=== PATIENT | male | born 1980 | race Caucasian/White ===

== ENCOUNTER 2021-12-28 15:15 | Emergency (ER) | payer MEDICARE, MEDICAID, SELFPAY ==
[2021-12-28 15:57] VITALS: BP 138/96; PULSE 118; RESP 18; TEMP 37.3; O2SAT 95; BMI 28.4
--- NOTE | 2021-12-28 16:05 | ECG_ITS ---
Test Reason : MEDCLEARANCE Blood Pressure : / mmHG Vent. Rate : 098 BPM Atrial Rate : 098 BPM P-R Int : 144 ms QRS Dur : 072 ms QT Int : 340 ms P-R-T Axes : 058 -11 040 degrees QTc Int : 434 ms Normal sinus rhythm Normal ECG When compared with ECG of 23-JUL-2018 16:48, No significant change was found Referred By: Fay Vasquez Electronically Signed By:YVONNE ALEXANDER MD
--- NOTE | 2021-12-28 16:10 | ED.PSYCH ---
HPI - Psych General Chief Complaint: Psychiatric Symptoms <Fay Villareal CODY Vasquez - Last Filed: 12/28/21 18:07> Stated Complaint: crisis <Fay Villareal CODY Vasquez - Last Filed: 12/28/21 18:07> Time Seen by Provider: 12/28/21 16:05 <Fay Dionnaannia Vasquez CNP - Last Filed: 12/28/21 18:07> Source: patient <Fay Villareal CODY Vasquez - Last Filed: 12/28/21 18:07> Mode of arrival: ambulatory <Fay Villareal CODY Vasquez - Last Filed: 12/28/21 18:07> Limitations: no limitations <Fay Dionna CODY Vasquez - Last Filed: 12/28/21 18:07> History of Present Illness HPI Narrative: Patient is a 41 year old with a past medical history of bipolar disorder, and cannabis use. He presents emergency department today for evaluation reporting he has been having trouble sleeping for a few days. He states he is not taking his medications, for a few years as he has been self medicating with marijuana which he feels helps. denies any recreational drug usage, reports infrequent alcohol consumption last usage a few days ago. He denies any suicidal or homicidal ideations. When asked whether he feels anxious or depressed he shrugs his shoulders. He reports that he lives with his 3 brothers Twin, Chas, Jose, with whom he is comfortable with us speaking with them. <Fay Dionnaannia Vasquez CNP - Last Filed: 12/28/21 18:07> Related Data Home Medications: Previous Rx's Medication Instructions Recorded quetiapine 50 mg tablet (Seroquel) 50 mg PO BEDTIME #10 tab 12/28/21 <Faymaryann Vasquez CNP - Last Filed: 12/28/21 18:07> Allergies/Adverse Reactions: Allergies Allergy/AdvReac Type Severity Reaction Status Date / Time No Known Allergies Allergy Unverified 06/07/20 16:49 [No Known Allergies*] <Fay Vasquez CNP - Last Filed: 12/28/21 18:07> Review of Systems Review of Systems: Constitutional : No Fever, No Chills ENT/Mouth : No Ear Pain, No Nasal Congestion, No sore throat Eyes: No Eye Pain, No Swelling, No Redness Cardiovascular : No Chest Pain, No SOB Respiratory : No Cough, No Sputum, No Dyspnea Gastrointestinal : No Nausea, No Vomiting, No Diarrhea, No Hematochezia, No Melena Genitourinary : No Dysuria, No Urinary Frequency, No Hematuria Musculoskeletal : No Myalgias Skin : No Skin Lesions, No rash Neuro : No Weakness, No Numbness, No Paresthesias, No Dizziness, No Headache Psych : Denies Anxiety, denies Depression, denies SI/HI, positive sleep disturbance Heme/Lymph: No Lymphadenopathy Endocrine : No Polyuria, No Polydipsia <aFy Vasquez CNP - Last Filed: 12/28/21 18:07> Yes all other systems are reviewed and are negative <Fay Vasquez CNP - Last Filed: 12/28/21 18:07> [facility] Past Medical History Attestation statement: The following information was validated with the patient. <Fay Vasquez CNP - Last Filed: 12/28/21 18:07> Source: old records reviewed <Fay Vasquez CNP - Last Filed: 12/28/21 18:07> Social History Social History: Social History Advance Directives: No Advance Directives Information Provided: No <Fay Vasquez CNP - Last Filed: 12/28/21 18:07> Physical Exam Vital Signs: Vital Signs: Last Vital Signs Temp 99.2 F 12/28/21 15:57 Pulse 91 12/28/21 17:10 Resp 18 12/28/21 17:10 BP 138/96 H 12/28/21 15:57 Pulse Ox 95 12/28/21 15:57 BMI result Body Mass Index 28.4 Vital signs have been reviewed and appeared to be correct. Blood pressure normal.? Initial tachycardia heart rate 118. Respiration rate normal. Temperature normal.? Oxygen saturation normal. <Fay Vasquez CNP - Last Filed: 12/28/21 18:07> Vital Signs: Last Vital Signs Temp 99.2 F 12/28/21 15:57 Pulse 91 12/28/21 17:10 Resp 18 12/28/21 17:10 BP 138/96 H 12/28/21 15:57 Pulse Ox 95 12/28/21 15:57 BMI result Body Mass Index 28.4 <Varghese Tucker MD - Last Filed: 12/28/21 18:29> Appearance: Alert.?Oriented to person, place and time. No acute distress.? Patient appears withdrawn, stuttering of his words, takes time to respond to questioning, appears mildly anxious Eyes: Pupils equal, round and reactive to light.? ENT: Pharynx normal.?? Neck: Normal inspection.? Neck supple.?? CVS: Heart sounds normal. Normal heart rate and rhythm.? Pulses normal.?? Respiratory: No respiratory distress.? Lung sounds clear to auscultation bilaterally?? Abdomen: Soft and non-tender. Normoactive bowel sounds. No pulsatile mass.?? Skin: Skin warm and dry.? Normal skin color.? Normal skin turgor.?? Extremities: No lower extremity edema.? Neuro: Moves all extremities spontaneously. Sensation intact bilaterally. CN II-XII intact. No focal neuro deficits. Ambulates with normal steady gait. <Fay Vasquez CNP - Last Filed: 12/28/21 18:07> Course Course Course Narrative: Patient is a 41-year-old male with a past medical history of bipolar disorder and cannabis use disorder, requesting to be seen for difficulty sleeping over the past few nights. He has not been taking his medications for a few years. Currently with no suicidal or homicidal ideations. Will obtain basic labs, including EKG is he is mildly tachycardic. Patient to be evaluated by crisis. <Fay Vasquez CNP - Last Filed: 12/28/21 18:07> Reevaluation(s) Reevaluation #1: Heart rate improved to 91. EKG reveals normal sinus rhythm. U-tox positive for marijuana. Patient placed in position observation this time as he will require more time for evaluation by N for appropriate disposition. He is well-appearing. In no apparent respiratory distress. <Fay Vasquez CNP - Last Filed: 12/28/21 18:07> Time: 18:06 <Fay Vasquez CNP - Last Filed: 12/28/21 18:07> Reevaluation #2: Patient seen by raphael jeffersonay to discharge patient home follow up as outpatient advised to give Seroquel 50 mg daily for now for sleep <Varghese Tucker MD - Last Filed: 12/28/21 18:29> MDM - Psych Medical Records Attestation: I reviewed the patient's medical records. <Fay Vasquez CNP - Last Filed: 12/28/21 18:07> Lab Data Attestation: I reviewed the patient's lab results. <Fay Vasquez CNP - Last Filed: 12/28/21 18:07> Result diagrams: : 12/28/21 17:52 12/28/21 17:52 <Fay Vasquez CNP - Last Filed: 12/28/21 18:07> Labs: Lab Results 12/28/21 12/28/21 12/28/21 Range/Units 16:08 16:09 17:52 WBC 12.0 H (4.8-10.8) X10*3/uL RBC 4.76 (4.60-5.80) X10*6/uL Hgb 14.3 (14.0-18.0) g/dl Hct 43.6 (42.0-52.0) % MCV 91.6 (80.0-98.0) fL MCH 30.0 (27.0-33.0) pg MCHC 32.8 (31.0-36.0) g/dl RDW 13.1 (11.0-16.0) % Plt Count 381 (160-400) X10*3/uL MPV 9.1 L (9.4-12.4) fL Immature Gran % (Auto) 0.4 (0.0-0.4) % Neut % (Auto) 68.0 (45-73) % Lymph % (Auto) 22.2 (20-40) % [place] % (Auto) 8.3 (2-11) % Eos % (Auto) 0.6 (0-4) % Baso % (Auto) 0.5 (0-2) % Lymph # (Auto) 2.7 (1.2-4.9) X10*3/uL [place] # (Auto) 1.0 (0.1-1.2) X10*3/uL Eos # (Auto) 0.1 (0.0-0.4) X10*3/uL Baso # (Auto) 0.1 (0.0-0.2) X10*3/uL Abs Immat Gran (auto) 0.05 H (0.00-0.03) X10*3/uL Absolute Neuts (auto) 8.2 (2.0-8.3) x10*3/uL Absolute Nucleated RBC 0.000 (0.0-0.012) X10*3/uL Nucleated RBC % (auto) 0.0 (0.0-0.2) /100WBC Sodium (135-145) mmol/L Potassium (3.3-5.1) mmol/L Chloride (96-108) mmol/L Carbon Dioxide (22-29) mmol/L Anion Gap (12-20) BUN (9-16) mg/dL Creatinine (0.5-1.4) mg/dL Estim Creat Clear Calc Estimated GFR Random Glucose (60-115) mg/dL Calcium (8.4-10.2) mg/dL Urine Opiates Screen Not Detected (Not Detect) Urine Fentanyl Screen Not Detected (Not Detect) Ur Barbiturates Screen Not Detected (Not Detect) Ur Phencyclidine Scrn Not Detected (Not Detect) Ur Amphetamines Screen Not Detected (Not Detect) U Benzodiazepines Scrn Not Detected (Not Detect) Urine Cocaine Screen Not Detected (Not Detect) U Marijuana (THC) Screen POSITIVE H (Not Detect) Ethyl Alcohol mg/dL COVID-19 (ZAFAR) Negative (Negative) COVID-19 Clin Com See Note 12/28/21 12/28/21 Range/Units 17:52 17:52 WBC (4.8-10.8) X10*3/uL RBC (4.60-5.80) X10*6/uL Hgb (14.0-18.0) g/dl Hct (42.0-52.0) % MCV (80.0-98.0) fL MCH (27.0-33.0) pg MCHC (31.0-36.0) g/dl RDW (11.0-16.0) % Plt Count (160-400) X10*3/uL MPV (9.4-12.4) fL Immature Gran % (Auto) (0.0-0.4) % Neut % (Auto) (45-73) % Lymph % (Auto) (20-40) % [place] % (Auto) (2-11) % Eos % (Auto) (0-4) % Baso % (Auto) (0-2) % Lymph # (Auto) (1.2-4.9) X10*3/uL [place] # (Auto) (0.1-1.2) X10*3/uL Eos # (Auto) (0.0-0.4) X10*3/uL Baso # (Auto) (0.0-0.2) X10*3/uL Abs Immat Gran (auto) (0.00-0.03) X10*3/uL Absolute Neuts (auto) (2.0-8.3) x10*3/uL Absolute Nucleated RBC (0.0-0.012) X10*3/uL Nucleated RBC % (auto) (0.0-0.2) /100WBC Sodium 142 (135-145) mmol/L Potassium 4.3 (3.3-5.1) mmol/L Chloride 105 (96-108) mmol/L Carbon Dioxide 26 (22-29) mmol/L Anion Gap 15 (12-20) BUN 19 H (9-16) mg/dL Creatinine 1.08 (0.5-1.4) mg/dL Estim Creat Clear Calc 107.6 Estimated GFR > 60 Random Glucose 95 (60-115) mg/dL Calcium 10.1 (8.4-10.2) mg/dL Urine Opiates Screen (Not Detect) Urine Fentanyl Screen (Not Detect) Ur Barbiturates Screen (Not Detect) Ur Phencyclidine Scrn (Not Detect) Ur Amphetamines Screen (Not Detect) U Benzodiazepines Scrn (Not Detect) Urine Cocaine Screen (Not Detect) U Marijuana (THC) Screen (Not Detect) Ethyl Alcohol < 10 mg/dL COVID-19 (ZAFAR) (Negative) COVID-19 Clin Com <Fay Vasquez, CODY - Last Filed: 12/28/21 18:07> Lab Results 04/09/22 04/09/22 04/09/22 Range/Units 16:08 16:09 17:52 WBC 12.0 H (4.8-10.8) X10*3/uL RBC 4.76 (4.60-5.80) X10*6/uL Hgb 14.3 (14.0-18.0) g/dl Hct 43.6 (42.0-52.0) % MCV 91.6 (80.0-98.0) fL MCH 30.0 (27.0-33.0) pg MCHC 32.8 (31.0-36.0) g/dl RDW 13.1 (11.0-16.0) % Plt Count 381 (160-400) X10*3/uL MPV 9.1 L (9.4-12.4) fL Immature Gran % (Auto) 0.4 (0.0-0.4) % Neut % (Auto) 68.0 (45-73) % Lymph % (Auto) 22.2 (20-40) % [place] % (Auto) 8.3 (2-11) % Eos % (Auto) 0.6 (0-4) % Baso % (Auto) 0.5 (0-2) % Lymph # (Auto) 2.7 (1.2-4.9) X10*3/uL [place] # (Auto) 1.0 (0.1-1.2) X10*3/uL Eos # (Auto) 0.1 (0.0-0.4) X10*3/uL Baso # (Auto) 0.1 (0.0-0.2) X10*3/uL Abs Immat Gran (auto) 0.05 H (0.00-0.03) X10*3/uL Absolute Neuts (auto) 8.2 (2.0-8.3) x10*3/uL Absolute Nucleated RBC 0.000 (0.0-0.012) X10*3/uL Nucleated RBC % (auto) 0.0 (0.0-0.2) /100WBC Sodium (135-145) mmol/L Potassium (3.3-5.1) mmol/L Chloride (96-108) mmol/L Carbon Dioxide (22-29) mmol/L Anion Gap (12-20) BUN (9-16) mg/dL Creatinine (0.5-1.4) mg/dL Estim Creat Clear Calc Estimated GFR Random Glucose (60-115) mg/dL Calcium (8.4-10.2) mg/dL Urine Opiates Screen Not Detected (Not Detect) Urine Fentanyl Screen Not Detected (Not Detect) Ur Barbiturates Screen Not Detected (Not Detect) Ur Phencyclidine Scrn Not Detected (Not Detect) Ur Amphetamines Screen Not Detected (Not Detect) U Benzodiazepines Scrn Not Detected (Not Detect) Urine Cocaine Screen Not Detected (Not Detect) U Marijuana (THC) Screen POSITIVE H (Not Detect) Ethyl Alcohol mg/dL COVID-19 (ZAFAR) Negative (Negative) COVID-19 Clin Com See Note 12/28/21 12/28/21 Range/Units 17:52 17:52 WBC (4.8-10.8) X10*3/uL RBC (4.60-5.80) X10*6/uL Hgb (14.0-18.0) g/dl Hct (42.0-52.0) % MCV (80.0-98.0) fL MCH (27.0-33.0) pg MCHC (31.0-36.0) g/dl RDW (11.0-16.0) % Plt Count (160-400) X10*3/uL MPV (9.4-12.4) fL Immature Gran % (Auto) (0.0-0.4) % Neut % (Auto) (45-73) % Lymph % (Auto) (20-40) % [place] % (Auto) (2-11) % Eos % (Auto) (0-4) % Baso % (Auto) (0-2) % Lymph # (Auto) (1.2-4.9) X10*3/uL [place] # (Auto) (0.1-1.2) X10*3/uL Eos # (Auto) (0.0-0.4) X10*3/uL Baso # (Auto) (0.0-0.2) X10*3/uL Abs Immat Gran (auto) (0.00-0.03) X10*3/uL Absolute Neuts (auto) (2.0-8.3) x10*3/uL Absolute Nucleated RBC (0.0-0.012) X10*3/uL Nucleated RBC % (auto) (0.0-0.2) /100WBC Sodium 142 (135-145) mmol/L Potassium 4.3 (3.3-5.1) mmol/L Chloride 105 (96-108) mmol/L Carbon Dioxide 26 (22-29) mmol/L Anion Gap 15 (12-20) BUN 19 H (9-16) mg/dL Creatinine 1.08 (0.5-1.4) mg/dL Estim Creat Clear Calc 107.6 Estimated GFR > 60 Random Glucose 95 (60-115) mg/dL Calcium 10.1 (8.4-10.2) mg/dL Urine Opiates Screen (Not Detect) Urine Fentanyl Screen (Not Detect) Ur Barbiturates Screen (Not Detect) Ur Phencyclidine Scrn (Not Detect) Ur Amphetamines Screen (Not Detect) U Benzodiazepines Scrn (Not Detect) Urine Cocaine Screen (Not Detect) U Marijuana (THC) Screen (Not Detect) Ethyl Alcohol < 10 mg/dL COVID-19 (ZAFAR) (Negative) COVID-19 Clin Com <Varghese Tucker MD - Last Filed: 12/28/21 18:29> ECG Data Attestation: I personally reviewed and interpreted this ECG as follows: <Fay Vasquez CNP - Last Filed: 12/28/21 18:07> ECG interpretation date: 12/28/21 <Fay Vasquez CNP - Last Filed: 12/28/21 18:07> ECG interpretation time: 17:04 <Fay Vasquez CNP - Last Filed: 12/28/21 18:07> Interpretation: Rate: 98 Rhythm:? Normal sinus rhythm [place]:? Normal Normal P waves.? Normal MIGUEL.?? Normal QRS complex.?? ST T wave :??No ST elevation, no ST depression, no T-wave inversion qTC: 434 The study has been interpreted contemporaneously by me. <Fay Vasquez CNP - Last Filed: 12/28/21 18:07> Discharge Plan Discharge Clinical Impression: Bipolar disorder, Disturbance, sleep <Fay Vasquez CNP - Last Filed: 12/28/21 18:07> Patient Disposition: Home, Self-Care <Fay Vasquez CNP - Last Filed: 12/28/21 18:07> Instructions: Bipolar Disorder (ED) <Fay Vasquez CNP - Last Filed: 12/28/21 18:07> Additional Instructions: Take medication as prescribed See N /psychiatrist as discussed <Fay Vasquez CNP - Last Filed: 12/28/21 18:07> Prescriptions: New quetiapine [Seroquel] 50 mg tablet 50 mg PO BEDTIME Qty: 10 0RF <Fay Vasquez CNP - Last Filed: 12/28/21 18:07>
[2021-12-28 16:35] LABS: COVID-19 Test Negative (Negative)
[2021-12-28 17:10] VITALS: PULSE 91; RESP 18
[2021-12-28 17:55] LABS: Amphetamine Screen Urine Not Detected (Not Detect); Barbiturates, Urine Not Detected (Not Detect); Benzodiazepines Screen Urine Not Detected (Not Detect); Cannabinoid Screen Urine POSITIVE (Not Detect); Cocaine Screen Urine Not Detected (Not Detect); Fentanyl, urine Not Detected (Not Detect); Opiate Screen Urine Not Detected (Not Detect); Phencyclidine Screen Urine Not Detected (Not Detect)
[2021-12-28 17:58] LABS: MANUAL DIFF FLAG NO
[2021-12-28 18:01] LABS: Basophils Absolute Auto 0.1 X10*3/uL (0.0-0.2); Basophils Percent Auto 0.5 % (0-2); Eosinophils Absolute Auto 0.1 X10*3/uL (0.0-0.4); Eosinophils Percent Auto 0.6 % (0-4); Hematocrit 43.6 % (42.0-52.0); Hemoglobin 14.3 g/dl (14.0-18.0); Imm Gran Abs Auto 0.05 X10*3/uL (0.00-0.03); Imm Gran Pct Auto 0.4 % (0.0-0.4); Lymphocytes Absolute Auto 2.7 X10*3/uL (1.2-4.9); Lymphocytes Percent Auto 22.2 % (20-40); Mean Corpuscular HGB Conc 32.8 g/dl (31.0-36.0); Mean Corpuscular Volume 91.6 fL (80.0-98.0); Mean Platelet Volume 9.1 fL (9.4-12.4); Monocytes Percent Auto 8.3 % (2-11); Neutrophils Absolute Auto 8.2 x10*3/uL (2.0-8.3); Platelet Count 381 X10*3/uL (160-400); Red Blood Count 4.76 X10*6/uL (4.60-5.80); Red Cell Distribution Width 13.1 % (11.0-16.0)
[2021-12-28 18:20] LABS: Anion Gap 15 (12-20); Blood Urea Nitrogen 19 mg/dL (9-16); Calcium 10.1 mg/dL (8.4-10.2); Carbon Dioxide 26 mmol/L (22-29); Chloride 105 mmol/L (96-108); Creatinine Clr Calc Pharmacy 107.6; Estimated Glomerular Filt Rate > 60; Glucose Random 95 mg/dL (60-115); Potassium 4.3 mmol/L (3.3-5.1); Sodium 142 mmol/L (135-145)
[2021-12-28 18:21] LABS: Ethanol < 10 mg/dL
== END 2021-12-28 19:34 | disposition home or self-care (01) ==
PROVIDERS: Nurse Practitioner Family; Emergency Provider Emergency Medicine
DX: F31.9 Bipolar disorder, unspecified (principal); G47.9 Sleep disorder, unspecified; R00.0 Tachycardia, unspecified; Z20.822 Contact with and (suspected) exposure to COVID-19; F12.90 Cannabis use, unspecified, uncomplicated; Z91.14 Patient's other noncompliance with medication regimen
CPT/HCPCS: 36415; 80048; 80307; 82077; 85025; 87635; 93005; 99285